=== PATIENT | male | born 1990 | race Caucasian/White ===

== ENCOUNTER 2016-11-24 19:56 | Emergency (ER) | payer OTHER ==
[~2016-11-24] VITALS: Ht 175.3 cm; Wt 110.0 kg
[~2016-11-24 19:56] MED LIST: DENIES
[2016-11-24 20:21] VITALS: Ht 175.3 cm; Wt 110.0 kg
[2016-11-24] MEDS ORDERED: CEPH-443 PO (21:15)
[2016-11-24] MEDS ORDERED: OXYC-279 PO (21:15)
[2016-11-24] MEDS ORDERED: SILV20CR14 TOP (21:15)
[2016-11-24] MEDS ORDERED: MUPI22OI2 TOP (21:15)
[2016-11-24] MEDS ORDERED: MUPIROCIN 2% 22 GM OINT TOP ONE (21:30)
[2016-11-24] MEDS ORDERED: OXYCODONE/ACETAMINOPHEN (5/325) TAB PO ONE (21:30)
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
== END 2016-11-24 22:21 | disposition home or self-care (01) ==
LOC: FTE 19:56
DX: T24.331A Burn of third degree of right lower leg, initial encounter (principal); X11.8XXA Contact with other hot tap-water, initial encounter; Y92.9 Unspecified place or not applicable
CPT/HCPCS: Z7502; Z7610; 99284